=== PATIENT | male | born 1950 | race Caucasian/White ===

== ENCOUNTER 2020-11-24 08:00 | Outpatient (CLI) | payer MEDICARE, OTHER ==
--- NOTE | 2020-11-24 17:01 | XRAY Report ---
PROCEDURE: Finger(s) LT INDICATIONS: LACERATION OF LEFT INDEX FINGER TECHNIQUE: 3 views of the left second finger(s) acquired. COMPARISON: None FINDINGS: Bones: No fractures or dislocations. Mild degenerative joint space loss and spur formation in the v isible interphalangeal joints. No suspicious bony lesions. Soft tissues: Soft tissue loss over the ventral aspect of the distal digit. No foreign bodies visibl e. Small dystrophic calcification dorsal to the second proximal phalanx head. No suspicious soft tiss ue calcifications. IMPRESSION: 1. Soft tissue loss over the distal second digit without underlying fracture or foreign body. Reviewed by: Celestina Ervin MD on 11/24/2020 5:00 PM PST Approved by: Celestina Ervin MD on 11/24/2020 5:00 PM PST Station ID: [id number]
== END 2020-11-24 23:59 | disposition home or self-care (01) ==
LOC: DI.S 08:00
PROVIDERS: ATTEND Emergency Medicine
DX: S61.221A Laceration with foreign body of left index finger without damage to nail, initial encounter (principal)

== ENCOUNTER 2021-04-30 16:30 | Outpatient (CLI) | payer OTHER | END 2021-04-30 16:31 | disposition home or self-care (01) | LOC: COV 16:30 | PROVIDERS: ATTEND Family Medicine | DX: Z20.822 Contact with and (suspected) exposure to COVID-19 (principal) ==